=== PATIENT | female | born 1950 | race Caucasian/White ===

== ENCOUNTER 2017-08-27 13:49 | Inpatient (IN) | payer MEDICARE, OTHER ==
[2017-08-27] MEDS: IPRATRPIUM/ALBUTEROL 0.5/2.5MG 3 ML NEBU. NEB ×2 (14:14→17:58)
[2017-08-27] MEDS: IV NORMAL SALINE 1000ML BAG 1,000 ML IV ×2 (15:41→23:30)
[2017-08-27 15:50] LABS: ANION GAP 13 (6-14); BLOOD UREA NITROGEN 18 mg/dL (7-20); BUN/CREATININE RATIO 23 (6-20); CALCIUM 10.5 mg/dL (8.5-10.1); CARBON DIOXIDE 23 mmol/L (21-32); CHLORIDE 100 mmol/L (98-107); CREATININE 0.8 mg/dL (0.6-1.0); GFR 71.3; GLUCOSE 128 mg/dL (70-99); POTASSIUM 3.4 mmol/L (3.5-5.1); SODIUM 136 mmol/L (136-145)
[2017-08-27 15:57] LABS: ALBUMIN 2.7 g/dL (3.4-5.0); ALBUMIN/GLOBULIN RATIO 0.7 (1.0-1.7); ALK PHOS 119 U/L (46-116); ALT (SGPT) 11 U/L (14-59); AST (SGOT) 5 U/L (15-37); TOTAL BILIRUBIN 1.8 mg/dL (0.2-1.0); TOTAL PROTEIN 6.6 g/dL (6.4-8.2)
[2017-08-27 15:59] LABS: TROPONINI < 0.017 ng/mL (0.000-0.055)
[2017-08-27 16:02] LABS: NT-PRO BNP 1579 pg/mL (0-124)
[2017-08-27] MEDS: AZITHRMYCN 500MG IVPB FOR OMNI 250 ML IV (16:14)
[2017-08-27 16:32] LABS: BASO % 0 % (0-3); EOS % 0 % (0-3); HEMOGLOBIN 12.1 g/dL (12.0-15.5); LYMPH # 0.5 x10^3/uL (1.0-4.8); LYMPH % 2 % (24-48); MEAN CORPUSCULAR HEMOGLOBIN 29 pg (25-35); MEAN CORPUSCULAR HGB CONC 34 g/dL (31-37); MEAN CORPUSCULAR VOLUME 85 fL (79-100); MONO # 0.8 x10^3/uL (0.0-1.1); MONO % 4 % (0-9); NEUT # 21.3 x10^3uL (1.8-7.7); NEUT % 94 % (31-73); PLATELET COUNT 213 x10^3/uL (140-400); RED BLOOD COUNT 4.23 x10^6/uL (3.50-5.40); RED CELL DISTRIBUTION WIDTH 14.6 % (11.5-14.5); WHITE BLOOD COUNT 22.6 x10^3/uL (4.0-11.0)
[2017-08-27 16:33] LABS: ADD MAN DIFF? YES
[2017-08-27] MEDS ORDERED: PIP/TAZO PER PHARMACY MC (17:00)
[2017-08-27 17:09] LABS: % BANDS 12 % (0-9); % LYMPHS 4 % (24-48); % MONOS 3 % (0-10); % SEGS 81 % (35-66)
[2017-08-27 17:13] LABS: PLT ESTIMATE ADEQUATE (ADEQUATE)
[2017-08-27] MEDS: PIPERACILLIN/TAZOBACTAM 3.375 GM in IV NORMAL SALINE 50ML 50 ML IV (17:24)
[2017-08-27] MEDS: VANCOMYCIN 2 GM in IV 1/2 NORMAL SALINE 500 ML IV (18:03)
[2017-08-27] MEDS: VANCOMYCIN PER PHARMACY MC (20:00)
[2017-08-27 20:17] LABS: LACTIC ACID 1.6 mmol/L (0.4-2.0)
[2017-08-27] MEDS: ACETAMINOPHEN 325 MG TABLET. PO (21:16)
[2017-08-28 05:25] LABS: ADD MAN DIFF? NO
[2017-08-28 05:28] LABS: BASO # 0.1 x10^3/uL (0.0-0.2); BASO % 0 % (0-3); EOS # 0.1 x10^3/uL (0.0-0.7); EOS % 0 % (0-3); HEMATOCRIT 36.2 % (36.0-47.0); HEMOGLOBIN 12.2 g/dL (12.0-15.5); LYMPH # 0.5 x10^3/uL (1.0-4.8); LYMPH % 3 % (24-48); MEAN CORPUSCULAR HEMOGLOBIN 29 pg (25-35); MEAN CORPUSCULAR HGB CONC 34 g/dL (31-37); MEAN CORPUSCULAR VOLUME 85 fL (79-100); MONO # 0.5 x10^3/uL (0.0-1.1); MONO % 3 % (0-9); NEUT # 16.5 x10^3uL (1.8-7.7); NEUT % 94 % (31-73); PLATELET COUNT 225 x10^3/uL (140-400); RED BLOOD COUNT 4.25 x10^6/uL (3.50-5.40); RED CELL DISTRIBUTION WIDTH 14.8 % (11.5-14.5); WHITE BLOOD COUNT 17.6 x10^3/uL (4.0-11.0)
[2017-08-28 05:48] LABS: ANION GAP 11 (6-14); BLOOD UREA NITROGEN 11 mg/dL (7-20); CARBON DIOXIDE 25 mmol/L (21-32); CHLORIDE 102 mmol/L (98-107); CREATININE 0.8 mg/dL (0.6-1.0); GFR 71.3; GLUCOSE 104 mg/dL (70-99); POTASSIUM 3.1 mmol/L (3.5-5.1); SODIUM 138 mmol/L (136-145)
[2017-08-28 05:55] LABS: CALCIUM 10.2 mg/dL (8.5-10.1)
[2017-08-28] MEDS: PIPERACILLIN/TAZOBACTAM 3.375 GM in IV NORMAL SALINE 50ML 50 ML IV ×5 (06:33→23:47)
[2017-08-28] MEDS: PANTOPRAZOLE 40 MG TABLET.DR. PO (07:53)
[2017-08-28] MEDS: VANCOMYCIN 1.25 GM in IV NORMAL SALINE 250ML 250 ML IV ×2 (07:54→20:44)
[2017-08-28] MEDS: MYCOPHENOLATE ACID 180 MG TABLET.DR. PO ×2 (08:31→20:44)
[2017-08-28] MEDS: CELECOXIB 200 MG CAPSULE. PO ×2 (08:32→20:45)
[2017-08-28] MEDS: CETIRIZINE HCL 10 MG TABLET. PO (08:32)
[2017-08-28] MEDS: FUROSEMIDE 20 MG TABLET PO (08:32)
[2017-08-28] MEDS: FOLIC/VIT B COMP W-C (RENAL) TABLET. PO (08:32)
[2017-08-28] MEDS: CYCLOBENZAPRINE 10 MG TABLET. PO (08:32)
[2017-08-28] MEDS: CARVEDILOL 12.5 MG TABLET. PO ×2 (08:33→17:16)
[2017-08-28] MEDS: TACROLIMUS 0.5 MG CAPSULE PO ×2 (08:33→20:44)
[2017-08-28] MEDS: IPRATRPIUM/ALBUTEROL 0.5/2.5MG 3 ML NEBU. NEB ×2 (11:16→16:41)
[2017-08-28] MEDS: POTASSIUM CHLORIDE 20 MEQ TABLET.ER. PO (14:52)
[2017-08-28] MEDS: IV NORMAL SALINE 1000ML BAG 1,000 ML IV ×2 (14:55→23:47)
[2017-08-28 20:05] LABS: VANC TR 15.4 mcg/mL (10.0-20.0)
[2017-08-28] MEDS: VANCOMYCIN PER PHARMACY MC (20:35)
[2017-08-28] MEDS: cloNIDine HCL 0.2 MG TABLET PO (20:45)
[2017-08-29] MEDS: PIPERACILLIN/TAZOBACTAM 3.375 GM in IV NORMAL SALINE 50ML 50 ML IV ×4 (05:35→23:31)
[2017-08-29] MEDS: PANTOPRAZOLE 40 MG TABLET.DR. PO (07:21)
[2017-08-29] MEDS: IPRATRPIUM/ALBUTEROL 0.5/2.5MG 3 ML NEBU. NEB ×4 (07:27→20:08)
[2017-08-29 07:51] LABS: ADD MAN DIFF? NO
[2017-08-29 07:58] LABS: BASO # 0.1 x10^3/uL (0.0-0.2); BASO % 0 % (0-3); EOS # 0.1 x10^3/uL (0.0-0.7); EOS % 1 % (0-3); HEMATOCRIT 35.7 % (36.0-47.0); HEMOGLOBIN 11.7 g/dL (12.0-15.5); LYMPH # 0.4 x10^3/uL (1.0-4.8); LYMPH % 4 % (24-48); MEAN CORPUSCULAR HEMOGLOBIN 28 pg (25-35); MEAN CORPUSCULAR HGB CONC 33 g/dL (31-37); MEAN CORPUSCULAR VOLUME 86 fL (79-100); MONO # 0.6 x10^3/uL (0.0-1.1); MONO % 5 % (0-9); NEUT # 11.1 x10^3uL (1.8-7.7); NEUT % 90 % (31-73); PLATELET COUNT 222 x10^3/uL (140-400); RED BLOOD COUNT 4.14 x10^6/uL (3.50-5.40); RED CELL DISTRIBUTION WIDTH 15.1 % (11.5-14.5); WHITE BLOOD COUNT 12.3 x10^3/uL (4.0-11.0)
[2017-08-29] MEDS: VANCOMYCIN 1.25 GM in IV NORMAL SALINE 250ML 250 ML IV ×2 (08:09→20:27)
[2017-08-29] MEDS: CARVEDILOL 12.5 MG TABLET. PO ×2 (08:11→17:23)
[2017-08-29] MEDS: POTASSIUM CHLORIDE 20 MEQ TABLET.ER. PO (08:12)
[2017-08-29] MEDS: FUROSEMIDE 20 MG TABLET PO (08:12)
[2017-08-29] MEDS: MYCOPHENOLATE ACID 180 MG TABLET.DR. PO ×2 (08:12→20:27)
[2017-08-29] MEDS: CELECOXIB 200 MG CAPSULE. PO ×2 (08:12→20:27)
[2017-08-29] MEDS: TACROLIMUS 0.5 MG CAPSULE PO ×2 (08:12→20:28)
[2017-08-29] MEDS: CYCLOBENZAPRINE 10 MG TABLET. PO (08:13)
[2017-08-29] MEDS: CETIRIZINE HCL 10 MG TABLET. PO (08:13)
[2017-08-29] MEDS: FOLIC/VIT B COMP W-C (RENAL) TABLET. PO (08:13)
[2017-08-29 08:22] LABS: ALBUMIN 2.1 g/dL (3.4-5.0); ALBUMIN/GLOBULIN RATIO 0.6 (1.0-1.7); ALK PHOS 118 U/L (46-116); ALT (SGPT) 10 U/L (14-59); ANION GAP 14 (6-14); AST (SGOT) 11 U/L (15-37); BLOOD UREA NITROGEN 10 mg/dL (7-20); BUN/CREATININE RATIO 14 (6-20); CALCIUM 9.1 mg/dL (8.5-10.1); CARBON DIOXIDE 22 mmol/L (21-32); CHLORIDE 107 mmol/L (98-107); CREATININE 0.7 mg/dL (0.6-1.0); GFR 83.2; GLUCOSE 108 mg/dL (70-99); SODIUM 143 mmol/L (136-145); TOTAL BILIRUBIN 0.6 mg/dL (0.2-1.0); TOTAL PROTEIN 5.9 g/dL (6.4-8.2)
[2017-08-29] MEDS: IV NORMAL SALINE 1000ML BAG 1,000 ML IV (11:24)
[2017-08-29] MEDS: VANCOMYCIN PER PHARMACY MC (14:22)
[2017-08-29] MEDS: cloNIDine HCL 0.2 MG TABLET PO (20:28)
[2017-08-29] MEDS: guaiFENesin DM 200MG/20MG 10 ML SYRUP PO (20:31)
[2017-08-30] MEDS: IV NORMAL SALINE 1000ML BAG 1,000 ML IV (02:58)
[2017-08-30] MEDS: PIPERACILLIN/TAZOBACTAM 3.375 GM in IV NORMAL SALINE 50ML 50 ML IV (05:37)
[2017-08-30] MEDS: IPRATRPIUM/ALBUTEROL 0.5/2.5MG 3 ML NEBU. NEB ×4 (07:06→19:50)
[2017-08-30] MEDS: PANTOPRAZOLE 40 MG TABLET.DR. PO (09:11)
[2017-08-30 09:12] LABS: ADD MAN DIFF? NO
[2017-08-30] MEDS: CYCLOBENZAPRINE 10 MG TABLET. PO (09:12)
[2017-08-30] MEDS: CELECOXIB 200 MG CAPSULE. PO (09:12)
[2017-08-30] MEDS: POTASSIUM CHLORIDE 20 MEQ TABLET.ER. PO (09:12)
[2017-08-30] MEDS: CARVEDILOL 12.5 MG TABLET. PO ×2 (09:12→17:50)
[2017-08-30] MEDS: MYCOPHENOLATE ACID 180 MG TABLET.DR. PO ×2 (09:13→21:58)
[2017-08-30] MEDS: FUROSEMIDE 20 MG TABLET PO (09:13)
[2017-08-30] MEDS: TACROLIMUS 0.5 MG CAPSULE PO ×2 (09:14→21:58)
[2017-08-30] MEDS: CETIRIZINE HCL 10 MG TABLET. PO (09:15)
[2017-08-30] MEDS: FOLIC/VIT B COMP W-C (RENAL) TABLET. PO (09:15)
[2017-08-30 09:17] LABS: BASO % 0 % (0-3); EOS # 0.2 x10^3/uL (0.0-0.7); EOS % 2 % (0-3); HEMATOCRIT 34.2 % (36.0-47.0); HEMOGLOBIN 11.3 g/dL (12.0-15.5); LYMPH # 0.4 x10^3/uL (1.0-4.8); LYMPH % 4 % (24-48); MEAN CORPUSCULAR HEMOGLOBIN 28 pg (25-35); MEAN CORPUSCULAR HGB CONC 33 g/dL (31-37); MEAN CORPUSCULAR VOLUME 85 fL (79-100); MONO # 0.4 x10^3/uL (0.0-1.1); MONO % 5 % (0-9); NEUT # 7.6 x10^3uL (1.8-7.7); NEUT % 88 % (31-73); PLATELET COUNT 252 x10^3/uL (140-400); RED CELL DISTRIBUTION WIDTH 14.7 % (11.5-14.5); WHITE BLOOD COUNT 8.6 x10^3/uL (4.0-11.0)
[2017-08-30 09:33] LABS: ALBUMIN 2.1 g/dL (3.4-5.0); ALBUMIN/GLOBULIN RATIO 0.4 (1.0-1.7); ALK PHOS 98 U/L (46-116); ALT (SGPT) 9 U/L (14-59); ANION GAP 10 (6-14); AST (SGOT) 8 U/L (15-37); BLOOD UREA NITROGEN 7 mg/dL (7-20); BUN/CREATININE RATIO 8 (6-20); CALCIUM 9.5 mg/dL (8.5-10.1); CARBON DIOXIDE 27 mmol/L (21-32); CHLORIDE 105 mmol/L (98-107); CREATININE 0.9 mg/dL (0.6-1.0); GFR 62.3; GLUCOSE 143 mg/dL (70-99); POTASSIUM 3.6 mmol/L (3.5-5.1); SODIUM 142 mmol/L (136-145); TOTAL BILIRUBIN 0.6 mg/dL (0.2-1.0)
[2017-08-30] MEDS: AMOXICILLIN/K CLAV 875/125MG TABLET. PO ×2 (11:06→21:57)
[2017-08-30] MEDS: cloNIDine HCL 0.2 MG TABLET PO (21:57)
[2017-08-30] MEDS: CELECOXIB 100 MG CAPSULE. PO (21:58)
[2017-08-30] MEDS: guaiFENesin DM 200MG/20MG 10 ML SYRUP PO (22:05)
[2017-08-30 22:14] LABS: LEGIONELLA AG UR Negative (Negative)
[2017-08-31 05:20] LABS: ADD MAN DIFF? NO
[2017-08-31 05:34] LABS: BASO % 0 % (0-3); EOS # 0.1 x10^3/uL (0.0-0.7); EOS % 2 % (0-3); HEMATOCRIT 33.9 % (36.0-47.0); HEMOGLOBIN 11.3 g/dL (12.0-15.5); LYMPH # 0.5 x10^3/uL (1.0-4.8); LYMPH % 6 % (24-48); MEAN CORPUSCULAR HEMOGLOBIN 28 pg (25-35); MEAN CORPUSCULAR HGB CONC 33 g/dL (31-37); MEAN CORPUSCULAR VOLUME 85 fL (79-100); MONO # 0.6 x10^3/uL (0.0-1.1); MONO % 8 % (0-9); NEUT # 7.1 x10^3uL (1.8-7.7); NEUT % 85 % (31-73); PLATELET COUNT 268 x10^3/uL (140-400); RED CELL DISTRIBUTION WIDTH 14.5 % (11.5-14.5); WHITE BLOOD COUNT 8.4 x10^3/uL (4.0-11.0)
[2017-08-31 05:44] LABS: ANION GAP 10 (6-14); BLOOD UREA NITROGEN 6 mg/dL (7-20); CALCIUM 9.7 mg/dL (8.5-10.1); CARBON DIOXIDE 29 mmol/L (21-32); CHLORIDE 103 mmol/L (98-107); CREATININE 0.7 mg/dL (0.6-1.0); GFR 83.2; GLUCOSE 119 mg/dL (70-99); POTASSIUM 3.4 mmol/L (3.5-5.1); SODIUM 142 mmol/L (136-145)
[2017-08-31] MEDS: IPRATRPIUM/ALBUTEROL 0.5/2.5MG 3 ML NEBU. NEB ×2 (08:06→11:34)
[2017-08-31] MEDS: POTASSIUM CHLORIDE 20 MEQ TABLET.ER. PO ×2 (08:15→08:50)
[2017-08-31] MEDS: PANTOPRAZOLE 40 MG TABLET.DR. PO (08:49)
[2017-08-31] MEDS: CARVEDILOL 12.5 MG TABLET. PO (08:49)
[2017-08-31] MEDS: AMOXICILLIN/K CLAV 875/125MG TABLET. PO (08:50)
[2017-08-31] MEDS: CYCLOBENZAPRINE 10 MG TABLET. PO (08:50)
[2017-08-31] MEDS: FUROSEMIDE 20 MG TABLET PO (08:51)
[2017-08-31] MEDS: CELECOXIB 100 MG CAPSULE. PO (08:51)
[2017-08-31] MEDS: MYCOPHENOLATE ACID 180 MG TABLET.DR. PO (08:53)
[2017-08-31] MEDS: CETIRIZINE HCL 10 MG TABLET. PO (08:53)
[2017-08-31] MEDS: FOLIC/VIT B COMP W-C (RENAL) TABLET. PO (08:53)
[2017-08-31] MEDS: TACROLIMUS 0.5 MG CAPSULE PO (08:58)
== END 2017-08-31 12:00 | disposition home or self-care (01) | DRG 871 ==
LOC: ER 13:49 → 1 WEST ICU 17:44 → 5 NORTH 19:17
DX: A41.9 Sepsis, unspecified organism (principal); J15.6 Pneumonia due to other Gram-negative bacteria; J96.01 Acute respiratory failure with hypoxia; Z94.0 Kidney transplant status; Z94.4 Liver transplant status; K21.9 Gastro-esophageal reflux disease without esophagitis; I10 Essential (primary) hypertension; Z90.49 Acquired absence of other specified parts of digestive tract; Z87.891 Personal history of nicotine dependence; Z79.899 Other long term (current) drug therapy; Z88.5 Allergy status to narcotic agent; Z99.2 Dependence on renal dialysis
CPT/HCPCS: 36415; 71046; 80048; 80053; 80202; 83605; 83880; 84484; 85007; 85025; 87070; 87205; 87449; 93005; 94618; 94640; 94760; 96365; 96367; 96375; 97110-GP; 97162-GP; 97165-GO; 99285; 99285-25; G0238; J0456; J0690; J2543; J3370; J7030; J7050; J7507; J7620

== ENCOUNTER → 2018-05-22 | Outpatient (CLI) | payer OTHER ==
[2017-08-31 11:00] VITALS: BP 155/62
[~2018-05-22] MED LIST: ALBU2.5V8 INH; AMOX1TAB11 PO; CARV12.511 PO; CELE200C PO; CETI10TA16 PO; CLON0.2T PO; CYCL10TA2 PO; FOLI0.8T3 PO; FURO-69 PO; GUAI-40 PO; GUAI5SYR PO; MYCO360T PO; PANT20TA2 PO; PRED-220 PO; PRED1TAB3 PO; TACR1CAP4 PO; [UNRECOGNIZED DRUG - OTHER]
--- NOTE | 2018-05-22 15:06 | KCIC ---
EXAM: Right knee, 3 views. HISTORY: Pain. COMPARISON: None. FINDINGS: 3 views of the right knee are obtained. There is lateral compartment subchondral sclerosis and medial and lateral compartment spurring. There is no fracture, dislocation or subluxation. There is a small joint effusion. IMPRESSION: 1. Mild lateral greater than medial compartment osteoarthritis of the right knee. 2. Small right knee effusion. Electronically signed by: Selam Mcleod MD (05/22/2018 3:03 PM) [facility]
== END | disposition home or self-care (01) ==
LOC: KCIC 14:41
PROVIDERS: ATTEND Family Medicine
DX: M17.11 Unilateral primary osteoarthritis, right knee (principal); M25.461 Effusion, right knee
CPT/HCPCS: 73562

== ENCOUNTER → 2019-10-02 | Outpatient (CLI) | payer OTHER ==
[2017-08-31 11:00] VITALS: BP 155/62
[~2019-10-02] MED LIST changes: -TACR1CAP4 PO; +TACR1CAP5 PO
--- NOTE | 2019-10-02 10:40 | KCIC ---
EXAM: 1. RIGHT HAND 3 VIEWS. 2. RIGHT WRIST 3 VIEWS. HISTORY: Palpable focus and pain right hand/wrist. COMPARISON: None. FINDINGS: A skin marker is placed along a soft tissue mass along the dorsum of the wrist measuring 3.8 x 1.2 cm. There is no underlying osseous abnormality. No fractures are identified in the wrist. First carpometacarpal and triscaphe osteoarthritis is moderate to severe. Alignment is maintained. No fractures are identified throughout the hand. Osteoarthritis is moderate at the first through third metacarpophalangeal joints. It is moderate to severe at the second and third distal interphalangeal joints and mild throughout the remainder of the interphalangeal joints. Mild atherosclerotic calcifications are noted. IMPRESSION: 1. 3.8 x 1.2 cm soft tissue mass along the dorsum of the wrist. This may represent a large ganglion. Sonography could further evaluate if the diagnosis is unclear. 2. Moderate to severe osteoarthritis as above. Electronically signed by: Preston Ayala MD (10/02/2019 10:36 AM) [id number]
== END | disposition home or self-care (01) ==
LOC: KCIC 09:20
PROVIDERS: ATTEND Family Medicine
DX: M19.041 Primary osteoarthritis, right hand (principal); M67.431 Ganglion, right wrist; I70.0 Atherosclerosis of aorta
CPT/HCPCS: 73110; 73130

== ENCOUNTER 2020-05-03 19:07 | Emergency (ER) | payer OTHER ==
[~2020-05-03] VITALS: Ht 160 cm; Wt 61.4 kg
[2020-05-03] MEDS ORDERED: IV NORMAL SALINE 1000ML BAG 1,000 ML IV ONE (19:45)
--- NOTE | 2020-05-03 19:55 | PHYS DOC ---
Past Medical History Past Medical History: GERD, Hypertension, Liver Disease, Renal Disease, Other Additional Past Medical Histor: LIVER AND KIDNEY TRANSPLANT Past Surgical History: Cholecystectomy, Other Additional Past Surgical Histo: dialysis shunt, LIVER AND KIDNEY TRANSPLANT Smoking Status: Former Smoker Alcohol Use: Sober Drug Use: None General Adult EDM: Chief Complaint: NAUSEA/VOMITING/DIARRHA HPI: HPI: 69 yo F PMH HTN, HLD and h/o liver and renal transplant 7 years ago (2/2 sepsis w/organ failure, on tacrolimus, no prednisone since 01/2020 because "fighting w/insurance"), presents to the ED with complaints of sudden onset nausea, nonb loody nonbilious vomiting that started this morning with associated loose stools, dry cough and headache. Lives with son who is well-appearing, asymptomatic. Influenza vaccine up-to-date. No recent travel. No history of Covid. Was not aware she had a low-grade fever. Denies any recent travel, new medications, recent antibiotics, hospitalizations (past 3 months) or poorly prep ared foods. PSH - cholecystectomy. Accepts covid/flu testing. Review of Systems: Review of Systems: Constitutional: Denies malaise or myalgias Eyes: Denies change in visual acuity. [] HENT: Denies nasal congestion or sore throat. [] Respiratory: Denies hemoptysis or shortness of breath. [] Cardiovascular: Denies chest pain or edema. [] GI: Denies focal abdominal pain, melena, hematochezia, hematemesis or constipation : Denies dysuria, hematuria Musculoskeletal: Denies back pain or joint pain. [] Integument: Denies rash or diaphoresis Neurologic: Denies nuchal rigidity, focal weakness or sensory changes. [] Endocrine: Denies polyuria or polydipsia. [] Lymphatic: Denies swollen glands. [] Psychiatric: Denies depression or anxiety. [] Heart Score: Risk Factors: Risk Factors: DM, Current or recent (<one month) smoker, HTN, HLP, family history of CAD, obesity. Risk Scores: Score 0 - 3: 2.5% MACE over next 6 weeks - Discharge Home Score 4 - 6: 20.3% MACE over next 6 weeks - Admit for Clinical Observation Score 7 - 10: 72.7% MACE over next 6 weeks - Early Invasive Strategies Current Medications: Current Medications Medications (Trade) Dose Ordered Sig/Tri Start Time Stop Time Status Last Admin Dose Admin Sodium Chloride 1,000 ml @ 1,000 mls/hr 1X ONCE 05/03/20 19:45 05/03/20 20:44 Allergies: Allergies: Allergies Coded Allergies Type Severity Reaction Last Updated Verified codeine Allergy Intermediate 08/28/17 Yes Physical Exam: PE: Constitutional: Well developed, non-toxic appearance, 100.1 HENT: Normocephalic, atraumatic, very dry mucous membranes, no pharyngeal erythema or exudates Eyes: EOMI, conjunctiva normal, no discharge. Neck: Normal range of motion, supple, Cardiovascular: S1/2 present, regular rhythm Lungs & Thorax: Speaking in full sentences, bilateral equal chest rise, no tachypnea or increased work of breathing Abdomen: soft, no focal tenderness, obese abdomen with no guarding or peritonitis, dry heaving in ED Skin: Warm, dry, no erythema, no rash. [] Back: No midline tenderness, no CVA tenderness. [] Extremities: No tenderness, no cyanosis, no edema Neurologic: Alert and oriented X 3, normal motor function, normal sensory function, no focal deficits noted. [] Psychologic: Affect normal, judgement normal, mood normal. [] EKG: EKG: Sinus rhythm at 90 bpm, no axis deviation, normal intervals, no T wave inversions, no ST elevations or ST depressions Radiology/Procedures: Radiology/Procedures: IMAGING REPORT Signed PATIENT: ANDREA CHAVEZ AACCOUNT: [id number] : 1950 LOCATION: ER AGE: 69 SEX: F EXAM STATUS: PRE ER ORD. PHYSICIAN: STEFF GRACIA DO REASON: nvd PROCEDURE: PORTABLE CHEST 1V Exam: Chest one view INDICATION: Nausea TECHNIQUE: Frontal view of the chest Comparisons: 08/30/2017 FINDINGS: The cardiomediastinal silhouette and pulmonary vessels are within normal limits. The lung and pleural spaces are clear. IMPRESSION: No acute cardiopulmonary process. Electronically signed by: Andrews Bowers MD (05/03/2020 7:52 PM) [facility] DICTATED and SIGNED BY: ANDREWS BOWERS MD DATE: 05/03/200783XXD1 0 IMAGING REPORT Signed PATIENT: ANDREA CHAVEZ AACCOUNT: [id number] : 1950 LOCATION: ER AGE: 69 SEX: F EXAM STATUS: REG ER ORD. PHYSICIAN: STEFF GRACIA DO REASON: n/v/d PROCEDURE: CT ABD PELV W/ IV CONTRST ONLY Exam: CT of abdomen and pelvis with contrast INDICATION: Nausea, vomiting and diarrhea TECHNIQUE: Sequential axial images through the abdomen and pelvis obtained following the administration of 75 mL of Isovue-370 IV contrast. Sagittal and coronal reformatted images were reconstructed from the axial data and reviewed. Comparisons: None FINDINGS: Heart size is normal. No pericardial effusion. Visualized lung bases are clear. Pleural effusion. Liver, spleen, pancreas and adrenals are unremarkable. Gallbladder is surgically absent. Negative kidneys are atrophic bilaterally. No renal or ureteral calculi. There is a right lower quadrant transplant kidney. No hydronephrosis. Bladder is partially distended and appears thin-walled. Uterus is not enlarged. No abnormal adnexal mass. Large and small bowel are unremarkable. There is a right lower quadrant ventral hernia containing loops of large and small bowel. No obstruction. No free intra- abdominal air or fluid. Abdominal aorta has a normal course and caliber. Abdominal vasculature is patent. No enlarged intra-abdominal lymph nodes are identified. No suspicious osseous lesions or acute fractures. IMPRESSION: 1. Right lower quadrant ventral hernia containing loops of large and small bowel. No obstruction. 2. No acute process identified in the abdomen or pelvis. 3. Right lower quadrant transplant kidney. No perinephric inflammation or hydronephrosis. Exposure: One or more of the following in the visualized dose reduction techniques were utilized for this examination: 1. Automated exposure control 2. Adjustment of the MA and/or KV according to patient size 3. Use of iterative of reconstructive technique Electronically signed by: Andrews Bowers MD (05/03/2020 11:03 PM) [facility] DICTATED and SIGNED BY: ANDREWS BOWERS MD DATE: 05/03/20 [id number] 0 Course & Med Decision Making: Course & Med Decision Making Pertinent Labs and Imaging studies reviewed. (See chart for details) COVID-19 CRITERIA: The patient was evaluated during the global COVID-19 pandemic, and that diagnosis was suspected/considered upon their initial presentation. Their evaluation, treatment and testing was consistent with current guidelines for patients who present with complaints or symptoms that may be related to COVID-19. Concern for nausea and vomiting, cough and headache which could represent a viral process, Covid test pending. Influenza negative. CT imaging consistent with nonobstructive ventral hernia. Oral temperature of 100.1 with no leukocytosis or bandemia. Normal lipase. Potassium 3.4. Urinalysis with trace leukocyte esterase, 1-4 wbcs. Given age/likely asymptomatic presentation will treat with Macrobid and prescribe Zofran ODT. Will discharge home with strict ED return precautions were given for worsening fever, dehydration, confusion flulike symptoms, flank pain, strokelike symptoms, chest pain or increased work of breathing. Encouraged urgent outpatient follow-up with PMD and GI prn. Life- threatening processes were considered but are low suspicion at this time, given history, physical exam and ED workup. Pt was educated on all prescription medications and adverse effects. All patient's questions were answered and pt was stable at time of discharge. Life/limb-threatening differential includes but is not limited to, acute coronary syndrome/myocardial infarction, Boerhaave's, DKA, intracranial hemorrhage, ischemic bowel, meningitis, sepsis, surgical abdomen (AAA), toxidrome (drug over/overdose/carbon monoxide, etc), ovarian/testicular torsion, trauma, or infection/sepsis. I spoken with the patient and her caregivers. I explained the patient's condition, diagnoses and treatment plan based on the information available to me at this time. I have answered the patient and her caregiver's questions and addressed any concerns. The patient and her caregivers have a good understanding of patient's diagnosis, condition and treatment plan as can be expected at this point. Vital signs have been stable. Patient's condition is stable and appropriate for discharge from the emergency department. Patient will pursue further outpatient evaluation with primary care physician or other designated or consulting physician as outlined in the discharge instructions. The patient and/or caregivers are agreeable to this plan of care and follow-up instructions have been explained in detail. The patient and/or caregivers have received these instructions in written form and have expressed an understanding of the discharge instructions. The patient and/or caregivers are aware that any significant change of condition or worsening of symptoms should prompt immediate return to this or the closest emergency department or call to 911. Munirbernadette Disclaimer: Dragon Disclaimer: This electronic medical record was generated, in whole or in part, using a voice recognition dictation system. Departure Departure Impression: Primary Impression: Nausea and vomiting Additional Impressions: Encounter for laboratory testing for COVID-19 virus UTI (urinary tract infection) Disposition: 01 DC HOME SELF CARE/HOMELESS Condition: STABLE Referrals: ДМИТРИЙ MONTE MD (PCP) Follow-up within the next week for reevaluation. Patient Instructions: Nausea and Vomiting, Urinary Tract Infection Additional Instructions: FOLLOW UP WITH GASTROENTEROLOGY: Gastroenterology [facility] Address: [address] [place] [address] Return to ED immediately if your oxygen level drops below 90% (purchase a pulse oximetry at a medical supply store), difficulties breathing including rapid breathing or increased work of breathing (skin sucking under ribs), chest pain or stroke-like symptoms (facial droop, speech changes, arm/leg weakness). You have been tested for COVID-19. It is an infection caused by a new type of coronavirus. COVID-19 will cause cold-like or mild flu symptoms in most. It can cause more severe symptoms like problems breathing in some. There is no treatment for COVID-19. The body will clear the infection over time. Self-care will help to ease discomfort. Steps to Take: Self-Care Rest as needed. Healthy habits may help you feel better. Steps include: Choose healthy foods including fruits and vegetables. Drink water throughout the day. Get plenty of sleep each night. If you smoke, try to quit. It may ease breathing. Avoid alcohol. Keep Others Healthy The virus can spread to others. Droplets are released every time you sneeze or cough. The droplets can get into the mouth, nose, or eyes of people near you and lead to infection. To lower the chances of spreading COVID-19 to others: Stay at home until your doctor has said it is safe to leave. If you tested positive this will mean staying isolated until both of the following are true: At least 7 days have passed since the start of illness. You are free of fever for at least 72 hours without the use of medicine. During this time: - Avoid public areas, events, or transportation. Do not return to work or school until your doctor has said it is safe to do so. - Call ahead if you need to go to a medical center. Let them know you may have COVID-19. It will help them guide you where to go. They may also ask you to wear a facemask when you come to the office. - If you call for emergency medical services, let them know you may have COVID- 19. While at home: - Try to avoid close contact with others. Stay about 6 feet away. - If possible, spend most of your time in a separate room from others. - Use a face mask if you will be in close contact with others such as sharing a room or vehicle. - Have someone wipe down common surfaces in the home. Use household hide dropper every day on areas like doorknobs, counters, or sinks. - Cough or sneeze into a tissue. Throw the tissue away right after use. If a tissue is not available, cough or sneeze into your elbow. - Wash your hands often. Wash them after sneezing or coughing. Use soap and water and wash for at least 20 seconds. Alcohol based hand creel cleaner can be used if soap and wate r is not available. - Do not prepare food for others. Avoid sharing personal items like forks, spoons, or toothbrushes. - Avoid close contact with pets while you are sick. There is no evidence of the virus passing to pets. This is a safety step until more is known about this virus. Isolation can be frustrating. Social interaction can help. Keep in touch with friends and family through phone and tech options. You can still interact with others in your home, just keep a safe distance of about 6 feet. Follow-up: Your doctors office will check in with you to see if there are any changes in your health. You may be asked to keep track of symptoms to share with them. They will also let you know when you are clear to be in public again. Problems to Look Out For: Contact your doctor if your recovery is not going as you expect. Get emergency care if you have problems such as: - Trouble breathing - Nonstop chest pain or pressure - Changes in awareness, confusion, or problems waking - Lips or face have bluish color - Worsening of symptoms If you think you have an emergency, call for emergency medical services right away. As taken from [facility] Health Scripts Ondansetron (ONDANSETRON ODT) 4 Mg Tab.rapdis 1 TAB PO PRN Q6-8HRS, #20 TAB Prov: STEFF GRACIA DO 05/04/20 Nitrofurantoin Monohyd/M-Cryst (MACROBID 100 MG CAPSULE) 100 Mg Capsule 1 CAP PO BID for 7 Days, #14 CAP 0 Refills Prov: STEFF GRACIA DO 05/04/20 STEFF GRACIA DO May 03, 2020 19:55
[2020-05-03 19:59] LABS: BASO # 0.1 x10^3/uL (0.0-0.2); BASO % 1 % (0-3); EOS % 1 % (0-3); HEMATOCRIT 40.9 % (36.0-47.0); HEMOGLOBIN 13.6 g/dL (12.0-15.5); LYMPH # 0.6 x10^3/uL (1.0-4.8); LYMPH % 6 % (24-48); MEAN CORPUSCULAR HEMOGLOBIN 28 pg (25-35); MEAN CORPUSCULAR HGB CONC 33 g/dL (31-37); MEAN CORPUSCULAR VOLUME 83 fL (79-100); MONO # 0.8 x10^3/uL (0.0-1.1); MONO % 8 % (0-9); NEUT % 86 % (31-73); PLATELET COUNT 245 x10^3/uL (140-400); RED BLOOD COUNT 4.93 x10^6/uL (3.50-5.40); RED CELL DISTRIBUTION WIDTH 15.1 % (11.5-14.5); WHITE BLOOD COUNT 10.5 x10^3/uL (4.0-11.0)
[2020-05-03 20:13] LABS: CALCIUM 10.6 mg/dL (8.5-10.1); CREATININE 0.8 mg/dL (0.6-1.0); GFR 70.9; POTASSIUM 3.4 mmol/L (3.5-5.1)
[2020-05-03 20:28] LABS: ALBUMIN 3.8 g/dL (3.4-5.0); DIRECT BILIRUBIN 0.3 mg/dL (0.0-0.2); TOTAL BILIRUBIN 1.4 mg/dL (0.2-1.0); TOTAL PROTEIN 8.1 g/dL (6.4-8.2)
[2020-05-03 20:31] LABS: INFLUENZA A PATIENT NEGATIVE (NEGATIVE); INFLUENZA B PATIENT NEGATIVE (NEGATIVE)
[2020-05-03] MEDS ORDERED: ONDANSETRON PF 4 MG/2 ML VIAL. IM ONE (20:45)
[2020-05-03 20:50] LABS: % BANDS 1 % (0-9); % EOS 1 % (0-5); % LYMPHS 8 % (24-48); % MONOS 5 % (0-10); % SEGS 85 % (35-66); PLT ESTIMATE ADEQUATE (ADEQUATE)
[2020-05-03] MEDS ORDERED: IOHEXOL 300 MG/ML 100ML VIAL. IV ONE (21:00)
[2020-05-03] MEDS ORDERED: CONTRAST GIVEN. MC PRN (21:15)
[2020-05-03 21:18] LABS: BILIRUBIN,URINE NEGATIVE (NEG); CLARITY,URINE CLEAR; COLOR,URINE YELLOW; NITRITE,URINE NEGATIVE (NEG); PH,URINE 7.5 (<5.0-8.0); PROTEIN,URINE NEGATIVE (NEG-TRACE); UROBILINOGEN,URINE 0.2 mg/dL (0.2 mg/dL)
[2020-05-03 21:25] LABS: BACTERIA,URINE FEW /HPF (0-FEW); RBC,URINE 0 /HPF (0-2)
--- NOTE | 2020-05-03 23:05 | RAD ---
Exam: CT of abdomen and pelvis with contrast INDICATION: Nausea, vomiting and diarrhea TECHNIQUE: Sequential axial images through the abdomen and pelvis obtained following the administrati on of 75 mL of Isovue-370 IV contrast. Sagittal and coronal reformatted images were reconstructed fro m the axial data and reviewed. Comparisons: None FINDINGS: Heart size is normal. No pericardial effusion. Visualized lung bases are clear. Pleural effusion. Liver, spleen, pancreas and adrenals are unremarkable. Gallbladder is surgically absent. Negative kidneys are atrophic bilaterally. No renal or ureteral calculi. There is a right lower quadr ant transplant kidney. No hydronephrosis. Bladder is partially distended and appears thin-walled. Uterus is not enlarged. No abnormal adnexal m ass. Large and small bowel are unremarkable. There is a right lower quadrant ventral hernia containing loo ps of large and small bowel. No obstruction. No free intra-abdominal air or fluid. Abdominal aorta has a normal course and caliber. Abdominal vasculature is patent. No enlarged intra-abdominal lymph nodes are identified. No suspicious osseous lesions or acute fractures. IMPRESSION: 1. Right lower quadrant ventral hernia containing loops of large and small bowel. No obstruction. 2. No acute process identified in the abdomen or pelvis. 3. Right lower quadrant transplant kidney. No perinephric inflammation or hydronephrosis. Exposure: One or more of the following in the visualized dose reduction techniques were utilized for this examination: 1. Automated exposure control 2. Adjustment of the MA and/or KV according to patient size 3. Use of iterative of reconstructive technique Electronically signed by: Andrews Aguilar MD (05/03/2020 11:03 PM) [facility]
[2020-05-03] MEDS ORDERED: diphenhydrAMINE 50 MG/ML VIAL IVP ONE (23:15)
[2020-05-03] MEDS ORDERED: PROCHLORPERAZINE 10 MG/2 ML VIAL. IV ONE (23:15)
[2020-05-03] MEDS ORDERED: DEXAMETHASONE SOD PHOS 20 MG/5 ML VIAL. IV ONE (23:15)
[2020-05-04 01:41] VITALS: BP 175/81
[2020-05-04] MEDS ORDERED: ONDA4TAB12 PO (01:48)
[2020-05-04] MEDS ORDERED: NITR100C62 PO (01:48)
--- NOTE | 2020-05-04 11:50 | EKG ---
[facility] [address] [place] [address] Test Date: 2020-05-03 Test Time: 19:30:20 Pat Name: ANDREA CHAVEZ Department: Room: Gender: F Unit Aide: : 1950 Requested By: STEFF GRACIA Order Number: [id number] Reading MD: Canelo Ugalde Measurements Intervals [place] Rate: 90 P: 43 MI: 126 QRS: 27 QRSD: 70 T: 34 QT: 320 QTc: 395 Interpretive Statements SINUS RHYTHM Electronically Signed On 05-05-2020 9:28:51 [employer] by Canelo Ugalde
--- NOTE | 2020-05-05 17:18 | NUR ---
IP: Attempted to contact pt concerning COVID results. Number on file has bee disconnected. Attempted to call son's number. No answer.
--- NOTE | 2020-05-06 15:03 | NUR ---
IP: Informed pt of negative COVID results. Pt verbalized understanding.
== END 2020-05-04 02:25 | disposition home or self-care (01) ==
LOC: ER 19:07
DX: N39.0 Urinary tract infection, site not specified (principal); Z20.822 Contact with and (suspected) exposure to COVID-19; R11.2 Nausea with vomiting, unspecified; R19.7 Diarrhea, unspecified; R05 Cough; K21.9 Gastro-esophageal reflux disease without esophagitis; I10 Essential (primary) hypertension; K76.1 Chronic passive congestion of liver; Z87.891 Personal history of nicotine dependence; Z98.890 Other specified postprocedural states; Z90.49 Acquired absence of other specified parts of digestive tract; Z88.5 Allergy status to narcotic agent
CPT/HCPCS: 36415; 71045; 74177; 80048; 80076; 81001; 82550; 83605; 83690; 83735; 84484; 85007; 85025; 87040; 87086; 87804; 93005; 96361; 96372; 96374; 96375; 99285; C9803; J0780; J1100; J1200; J2405; J7030; Q9967; U0003

== ENCOUNTER 2021-01-02 10:20 | Emergency (ER) | payer OTHER ==
[~2021-01-02] VITALS: Ht 160 cm; Wt 150.0 kg
[~2021-01-02 10:20] MED LIST changes: +NITR100C62 PO; +ONDA4TAB12 PO
[2021-01-02 10:52] LABS: BILIRUBIN,URINE NEGATIVE (NEG); CLARITY,URINE CLEAR; COLOR,URINE YELLOW; NITRITE,URINE POSITIVE (NEG); PH,URINE 6.5 (<5.0-8.0); PROTEIN,URINE 100 mg/dL (NEG-TRACE); UROBILINOGEN,URINE 0.2 mg/dL (0.2 mg/dL)
[2021-01-02 10:58] LABS: AMPHETAMINE/METHAMPHETAMINE NEG (NEG); BARBITURATES NEG (NEG); BENZODIAZEPINES NEG (NEG); CANNABINOIDS NEG (NEG); COCAINE NEG (NEG); METHADONE NEG (NEG); OPIATES NEG (NEG); PHENCYCLIDINE NEG (NEG)
--- NOTE | 2021-01-02 10:59 | PHYS DOC ---
Past Medical History Past Medical History: GERD, Hypertension, Liver Disease, Renal Disease, Other Additional Past Medical Histor: LIVER AND KIDNEY TRANSPLANT Past Surgical History: Cholecystectomy, Other Additional Past Surgical Histo: dialysis shunt, LIVER AND KIDNEY TRANSPLANT Smoking Status: Never Smoker Alcohol Use: None Drug Use: None General Adult EDM: Chief Complaint: SHORTNESS OF BREATH HPI: HPI: Patient is a 70 year old female with history of hypertension, liver and kidney transplant who presents to the ED today complaining of a cough with shortness of breath after being exposed to COVID-19 2 days ago. Patient states she got expos ed by a neighbor who tested positive. Patient denies any fever. She states she coughed so hard that she vomited. Denies any chest pain. Patient is unvaccinated against Covid. Review of Systems: Review of Systems: Constitutional: Denies fever or chills. [] Eyes: Denies change in visual acuity. [] HENT: Denies nasal congestion or sore throat. [] Respiratory: Reports cough and shortness of breath. [] Cardiovascular: Denies chest pain or edema. [] GI: Denies abdominal pain, nausea, vomiting, bloody stools or diarrhea. [] : Denies dysuria. [] Musculoskeletal: Denies back pain or joint pain. [] Integument: Denies rash. [] Neurologic: Denies headache, focal weakness or sensory changes. [] Psychiatric: Denies depression or anxiety. [] Heart Score: C/O Chest Pain: N/A Risk Factors: Risk Factors: DM, Current or recent (<one month) smoker, HTN, HLP, family history of CAD, obesity. Risk Scores: Score 0 - 3: 2.5% MACE over next 6 weeks - Discharge Home Score 4 - 6: 20.3% MACE over next 6 weeks - Admit for Clinical Observation Score 7 - 10: 72.7% MACE over next 6 weeks - Early Invasive Strategies Allergies: Allergies: Allergies Coded Allergies Type Severity Reaction Last Updated Verified codeine Allergy Intermediate 08/28/17 Yes Physical Exam: PE: Constitutional: Well developed, well nourished, no acute distress, non-toxic appearance. [] HENT: Normocephalic, atraumatic, bilateral external ears normal, oropharynx moist, no oral exudates, nose normal. [] Eyes: PERRLA, EOMI, conjunctiva normal, no discharge. [] Neck: Normal range of motion, no tenderness, supple, no stridor. [] Cardiovascular:Heart rate regular rhythm, no murmur [] Lungs & Thorax: Bilateral breath sounds clear to auscultation [] Abdomen: Old healed surgical incisions noted on the abdomen. Bowel sounds normal, soft, no tenderness, no masses, no pulsatile masses. [] Skin: Warm, dry, no erythema, no rash. [] Back: No tenderness, no CVA tenderness. [] Extremities: No tenderness, no cyanosis, no clubbing, ROM intact, no edema. [] Neurologic: Alert and oriented X 3, normal motor function, normal sensory function, no focal deficits noted. [] Psychologic: Affect normal, judgement normal, mood normal. [] EKG: EK interpreted by Dr. Floyd sinus tachycardia heart rate 107 no STEMI [] Radiology/Procedures: Radiology/Procedures: []PROCEDURE: PORTABLE CHEST 1V EXAM: Chest, single view. HISTORY: Cough. COMPARISON: 05/03/2020 FINDINGS: A frontal view of the chest obtained. There is no infiltrate, pleural effusion or pneumothorax. There is a stable prominent cardiac silhouette. IMPRESSION: No acute pulmonary finding. Electronically signed by: Selam Soler MD (01/02/2021 11:12 AM) [id number] DICTATED and SIGNED BY: SELAM SOLER MD DATE: 01/02/21 [id number] 0 Course & Med Decision Making: Course & Med Decision Making Pertinent Labs and Imaging studies reviewed. (See chart for details) This is a 70-year-old female patient presented to the ED today complaining of cough and shortness of breath that began 2 days ago after being exposed to COVID-19. Temperature on arrival to the ED 98.9, heart rate 108, respiration 24, blood pressure 146/94, O2 sats 96 to 100% on room air. Has not take her BP medicines t his morning UA positive for UTI. CBC with a WBC of 11.8, hemoglobin 11.9 with hematocrit of 35.1 likely from chronic kidney disease. Potassium 3.1, patient was given oral potassium replacement. BNP 3385, patient was given furosemide. Chest x-ray negative for pneumonia or any acute findings. Rapid Covid test is positive. Patient was discharged to home. Instructed to quarantine herself. Given prescription for cephalexin for UTI. Precautions. Follow-up with PCP next week. Sami Disclaimer: Sami Disclaimer: This electronic medical record was generated, in whole or in part, using a voice recognition dictation system. Departure Departure Impression: Primary Impression: SARS-CoV-2 positive Additional Impressions: Shortness of breath Cough Urinary tract infection Qualified Codes: N39.0 - Urinary tract infection, site not specified Hypokalemia Disposition: HOME / SELF CARE / HOMELESS Condition: STABLE Referrals: ДМИТРИЙ MONTE MD (PCP) follow up in one week Patient Instructions: Cough, Adult, [id number], Shortness of Breath, Uhqu-xo-Cvuv, Urinary Tract Infection Additional Instructions: You are Positive for COVID-19 and urinary tract infection, will sent antibiotics to your pharmacy for urinary track infection. We highly recommend you quarantine yourself for 14 days, please maintain good hand hygiene. Come back to the ED at any point symptoms worsen Scripts Cephalexin (CEPHALEXIN) 500 Mg Tablet 1 TAB PO BID, #14 TAB Prov: CHARLINE SIMPSON APRN 01/02/21 CHARLINE SIMPSON APRN Jan 02, 2021 10:59
[2021-01-02 11:04] LABS: BACTERIA,URINE MANY /HPF (0-FEW); RBC,URINE RARE /HPF (0-2)
--- NOTE | 2021-01-02 11:15 | RAD ---
EXAM: Chest, single view. HISTORY: Cough. COMPARISON: 05/03/2020 FINDINGS: A frontal view of the chest obtained. There is no infiltrate, pleural effusion or pneumotho rax. There is a stable prominent cardiac silhouette. IMPRESSION: No acute pulmonary finding. Electronically signed by: Selam Mcleod MD (01/02/2021 11:12 AM) [id number]
[2021-01-02 11:30] LABS: BASO % 0 % (0-3); EOS % 0 % (0-3); HEMATOCRIT 35.1 % (36.0-47.0); HEMOGLOBIN 11.9 g/dL (12.0-15.5); LYMPH # 0.7 x10^3/uL (1.0-4.8); LYMPH % 6 % (24-48); MEAN CORPUSCULAR HEMOGLOBIN 28 pg (25-35); MEAN CORPUSCULAR HGB CONC 34 g/dL (31-37); MEAN CORPUSCULAR VOLUME 83 fL (79-100); MONO # 1.2 x10^3/uL (0.0-1.1); MONO % 10 % (0-9); NEUT # 9.9 x10^3/uL (1.8-7.7); NEUT % 84 % (31-73); PLATELET COUNT 180 x10^3/uL (140-400); RED BLOOD COUNT 4.22 x10^6/uL (3.50-5.40); WHITE BLOOD COUNT 11.8 x10^3/uL (4.0-11.0)
[2021-01-02 11:40] LABS: CALCIUM 9.6 mg/dL (8.5-10.1); CREATININE 0.8 mg/dL (0.6-1.0); GFR 70.7; POTASSIUM 3.1 mmol/L (3.5-5.1)
[2021-01-02 11:46] LABS: ALBUMIN 3.5 g/dL (3.4-5.0); ALBUMIN/GLOBULIN RATIO 0.8 (1.0-1.7); MAGNESIUM 1.5 mg/dL (1.8-2.4); TOTAL BILIRUBIN 0.7 mg/dL (0.2-1.0); TOTAL PROTEIN 7.7 g/dL (6.4-8.2)
[2021-01-02] MEDS ORDERED: POTASSIUM CHLORIDE 20 MEQ TABLET.ER. PO ONE (12:30)
[2021-01-02] MEDS ORDERED: CEPH500T PO (12:40)
[2021-01-02] MEDS ORDERED: FUROSEMIDE 40 MG/4 ML ORAL SOLUTION. PEG SCH (12:45)
[2021-01-02 12:53] VITALS: BP 138/64
[2021-01-02] MEDS ORDERED: FUROSEMIDE 40 MG TABLET. PO ONE (13:00)
--- NOTE | 2021-01-02 19:49 | EKG ---
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
== END 2021-01-02 13:05 | disposition home or self-care (01) ==
LOC: ER 10:20
DX: U07.1 COVID-19 (principal); N39.0 Urinary tract infection, site not specified; E87.6 Hypokalemia; K21.9 Gastro-esophageal reflux disease without esophagitis; I10 Essential (primary) hypertension; Z94.0 Kidney transplant status; Z90.49 Acquired absence of other specified parts of digestive tract; Z88.5 Allergy status to narcotic agent
CPT/HCPCS: 36415; 71045; 80053; 80307; 81001; 83605; 83735; 83880; 84145; 84484; 85025; 87040; 87077; 87086; 87186; 87426; 93005; 99285

== ENCOUNTER 2021-01-05 08:33 | Emergency (ER) | payer OTHER ==
[~2021-01-05] VITALS: Ht 160 cm; Wt 68.1 kg
[~2021-01-05 08:33] MED LIST changes: +CEPH500T PO
[2021-01-05] MEDS ORDERED: IV RINGERS,LACTATED 500ML 500 ML IV ONE (09:30)
--- NOTE | 2021-01-05 09:36 | NUR ---
Pt reporting soiling herself. This tech cleaned pt and bagged slip-on footwear as well as soiled clothing in separate bags. EMS cover/absorbant pads removed from under the patient. Pt now has extra-absorbant pad underneath them.
[2021-01-05 09:43] LABS: BASO % 0 % (0-3); EOS % 0 % (0-3); HEMATOCRIT 35.5 % (36.0-47.0); HEMOGLOBIN 12.4 g/dL (12.0-15.5); LYMPH # 0.7 x10^3/uL (1.0-4.8); LYMPH % 7 % (24-48); MEAN CORPUSCULAR HEMOGLOBIN 29 pg (25-35); MEAN CORPUSCULAR HGB CONC 35 g/dL (31-37); MEAN CORPUSCULAR VOLUME 82 fL (79-100); MONO # 0.9 x10^3/uL (0.0-1.1); MONO % 10 % (0-9); NEUT # 7.4 x10^3/uL (1.8-7.7); NEUT % 82 % (31-73); PLATELET COUNT 187 x10^3/uL (140-400); RED BLOOD COUNT 4.32 x10^6/uL (3.50-5.40); RED CELL DISTRIBUTION WIDTH 13.9 % (11.5-14.5)
[2021-01-05 09:55] LABS: CALCIUM 10.1 mg/dL (8.5-10.1); GFR 54.7; POTASSIUM 3.7 mmol/L (3.5-5.1)
[2021-01-05 10:01] LABS: ALBUMIN 3.2 g/dL (3.4-5.0); ALBUMIN/GLOBULIN RATIO 0.6 (1.0-1.7); TOTAL BILIRUBIN 0.6 mg/dL (0.2-1.0); TOTAL PROTEIN 8.2 g/dL (6.4-8.2)
--- NOTE | 2021-01-05 10:01 | RAD ---
XR CHEST 1V CLINICAL INDICATIONS: Shortness of breath COMPARISON: January 02, 2021. Findings: Calcified granuloma of the left lung bases seen. No acute lung infiltrate or pleural effusi on or pulmonary edema or lung mass or pneumothorax is seen. The heart size, pulmonary vasculature, m ediastinum and both daja are unremarkable. IMPRESSION: No acute radiographic abnormality is seen. Electronically signed by: Vasiliy Delaney MD (01/05/2021 9:58 AM) [id number]
--- NOTE | 2021-01-05 10:02 | PHYS DOC ---
Past Medical History Past Medical History: GERD, Hypertension, Liver Disease, Renal Disease, Other Additional Past Medical Histor: Kidney and liver transplant 7 years ago. Past Surgical History: Other Additional Past Surgical Histo: Kidney and liver transplant Smoking Status: Former Smoker Alcohol Use: None Drug Use: None General Adult EDM: Chief Complaint: WEAKNESS/GENERALIZED HPI: HPI: Patient is a 70 year old female who returns to the emergency department with continued complaints of cough, shortness of breath, weakness and diarrhea. Patient was seen in the department 3 days ago and was diagnosed COVID positive. She returns today due to her persistent symptoms, and worsening shortness of breath. Patient reports she had liver and kidney transplants 7 years ago, and therefore has not taken any medications because she is unsure what she is prohibited from taking. She denies fever/chills, headache, vomiting, bloody stool. Patient has no other complaints at this time. Review of Systems: Review of Systems: Constitutional: Denies fever or chills. Respiratory: See HPI Cardiovascular: Denies chest pain or edema. GI: See HPI : Denies dysuria or hematuria Musculoskeletal: Denies back pain or joint pain. Integument: Denies rash or other skin lesions Neurologic: See HPI Endocrine: Denies polyuria or polydipsia. Psychiatric: Denies depression or anxiety. Heart Score: C/O Chest Pain: No Current Medications: Current Medications Medications (Trade) Dose Ordered Sig/Tri Start Time Stop Time Status Last Admin Dose Admin Ringer's Solution 500 ml @ 500 mls/hr 1X ONCE 01/05/21 09:30 01/05/21 10:29 Allergies: Allergies: Allergies Coded Allergies Type Severity Reaction Last Updated Verified codeine Allergy Intermediate 01/05/21 Yes Physical Exam: PE: Constitutional: Patient appears fatigued, but otherwise well developed, well nourished. HENT: Normocephalic, atraumatic, bilateral external ears normal, oropharynx moist, no oral exudates, nose normal. Eyes: PERRLA, EOMI, conjunctiva normal, no discharge. Cardiovascular: Heart rate regular rhythm, no murmur. Lungs & Thorax: Bilateral breath sounds clear to auscultation. Abdomen: Bowel sounds normal, soft, no tenderness, no masses, no pulsatile masses. Skin: Warm, dry, no erythema, no rash. Extremities: No tenderness, no cyanosis, no clubbing, ROM intact, no edema. Neurologic: Alert and oriented x3, normal motor function, normal sensory function, no focal deficits noted. Current Patient Data: Labs: Laboratory Tests Test 01/05/21 08:49 White Blood Count 9.0 x10^3/uL (4.0-11.0) Red Blood Count 4.32 x10^6/uL (3.50-5.40) Hemoglobin 12.4 g/dL (12.0-15.5) Hematocrit 35.5 % (36.0-47.0) L Mean Corpuscular Volume 82 fL (79-100) Mean Corpuscular Hemoglobin 29 pg (25-35) Mean Corpuscular Hemoglobin Concent 35 g/dL (31-37) Red Cell Distribution Width 13.9 % (11.5-14.5) Platelet Count 187 x10^3/uL (140-400) Neutrophils (%) (Auto) 82 % (31-73) H Lymphocytes (%) (Auto) 7 % (24-48) L Monocytes (%) (Auto) 10 % (0-9) H Eosinophils (%) (Auto) 0 % (0-3) Basophils (%) (Auto) 0 % (0-3) Neutrophils # (Auto) 7.4 x10^3/uL (1.8-7.7) Lymphocytes # (Auto) 0.7 x10^3/uL (1.0-4.8) L Monocytes # (Auto) 0.9 x10^3/uL (0.0-1.1) Eosinophils # (Auto) 0.0 x10^3/uL (0.0-0.7) Basophils # (Auto) 0.0 x10^3/uL (0.0-0.2) Laboratory Tests 01/05/21 08:49 Vital Signs: Vital Signs Date Time Temp Pulse Resp B/P (MAP) Pulse Ox O2 Delivery O2 Flow Rate FiO2 01/05/21 08:33 98.9 80 20 130/77 (94) 97 Room Air 98.9 EKG: EKG: EKG Interpreted by Dr. Corrales: Sinus arrhythmia 76 bpm and with no ectopic beats. No concerning ST-T wave changes. Regular QR interval. (Occasional PVCs seen on monitor.) Radiology/Procedures: Radiology/Procedures: PROCEDURE: PORTABLE CHEST 1V XR CHEST 1V CLINICAL INDICATIONS: Shortness of breath COMPARISON: January 02, 2021. Findings: Calcified granuloma of the left lung bases seen. No acute lung infiltrate or pleural effusion or pulmonary edema or lung mass or pneumothorax is seen. The heart size, pulmonary vasculature, mediastinum and both daja are unremarkable. IMPRESSION: No acute radiographic abnormality is seen. Electronically signed by: Vasiliy Delaney MD (01/05/2021 9:58 AM) [id number] Course & Med Decision Making: Course & Med Decision Making Pertinent Labs and Imaging studies reviewed. (See chart for details) As patient is known COVID positive, and has worsening shortness of breath, chest x-ray will be ordered to evaluate for COVID pneumonia. Chest x-ray does not show evidence of Covid pneumonia at this time. Patient is also satting in the high 90s on room air. Due to patient's age, immunocompromise status, and symptom duration less than 10 days, she is eligible for a monoclonal antibody infusion. She is very high risk for severe Covid pneumonia infection, so she will be administered therapy in the department and then discharged home versus outpatient referral for monoclonal antibody infusion therapy. REGEN-COV dose pack administered in ED and patient was observed per protocol. Patient tolerated treatment and will be discharged home with COVID-19 diagnosis information as well as the fact sheet for patients obtained from [facility]. She has strict return precautions for new or worsening symptoms. Patient understands and is agreeable to discharge plan. Dragon Disclaimer: Sami Disclaimer: This electronic medical record was generated, in whole or in part, using a voice recognition dictation system. Departure Departure Impression: Primary Impression: SARS-CoV-2 positive Additional Impressions: Cough Hyponatremia Diarrhea due to COVID-19 Disposition: 01 HOME / SELF CARE / HOMELESS Condition: STABLE Referrals: ДМИТРИЙ MONTE MD (PCP) Patient Instructions: Diet for Diarrhea, Adult, Shortness of Breath, Easy -to-Read Additional Instructions: As discussed, you are eligible for a monoclonal antibody infusion outpatient therapy for COVID-19 infection. Due to your immunocompromised status after your liver and kidney transplants, you were provided with this treatment here in the department. You have been tested for or diagnosed with COVID-19. It is an infection caused by a new type of coronavirus. COVID-19 will cause cold-like or mild flu symptoms in most. It can cause more severe symptoms like problems breathing in some. There is no treatment for COVID-19. The body will clear the infection over time. Self-care will help to ease discomfort. Steps to Take: Self-Care Rest as needed. Healthy habits may help you feel better. Steps include: Choose healthy foods including fruits and vegetables. Drink water throughout the day. Get plenty of sleep each night. If you smoke, try to quit. It may ease breathing. Avoid alcohol. Keep Others Healthy The virus can spread to others. Droplets are released every time you sneeze or cough. The droplets can get into the mouth, nose, or eyes of people near you and lead to infection. To lower the chances of spreading COVID-19 to others: Stay at home until your doctor has said it is safe to leave. If you tested positive this will mean staying isolated until both of the following are true: At least 7 days have passed since the start of illness. You are free of fever for at least 72 hours without the use of medicine. During this time: - Avoid public areas, events, or transportation. Do not return to work or school until your doctor has said it is safe to do so. - Call ahead if you need to go to a medical center. Let them know you may have COVID-19. It will help them guide you where to go. They may also ask you to wear a facemask when you come to the office. - If you call for emergency medical services, let them know you may have COVID- 19. While at home: - Try to avoid close contact with others. Stay about 6 feet away. - If possible, spend most of your time in a separate room from others. - Use a face mask if you will be in close contact with others such as sharing a room or vehicle. - Have someone wipe down common surfaces in the home. Use household printing screen assembler every day on areas like doorknobs, counters, or sinks. - Cough or sneeze into a tissue. Throw the tissue away right after use. If a tissue is not available, cough or sneeze into your elbow. - Wash your hands often. Wash them after sneezing or coughing. Use soap and water and wash for at least 20 seconds. Alcohol based hand quill cleaner can be used if soap and water is not available. - Do not prepare food for others. Avoid sharing personal items like forks, spoons, or toothbrushes. - Avoid close contact with pets while you are sick. There is no evidence of the virus passing to pets. This is a safety step until more is known about this virus. Isolation can be frustrating. Social interaction can help. Keep in touch with friends and family through phone and tech options. You can still interact with others in your home, just keep a safe distance of about 6 feet. Follow-up: Your doctors office will check in with you to see if there are any changes in your health. You may be asked to keep track of symptoms to share with them. They will also let you know when you are clear to be in public again. Problems to Look Out For: Contact your doctor if your recovery is not going as you expect. Get emergency care if you have problems such as: - Trouble breathing - Nonstop chest pain or pressure - Changes in awareness, confusion, or problems waking - Lips or face have bluish color - Worsening of symptoms If you think you have an emergency, call for emergency medical services right away. As taken from [facility] Albuterol Sulfate (PROAIR HFA INHALER) 8.5 Gm Hfa.aer.ad 2 PUFF IH PRN Q4-6HRS PRN for SHORTNESS OF BREATH, #1 INHALER 1 Refill Prov: CHAITANYA TATE 01/05/21 CHAITANYA TATE Jan 05, 2021 10:02
[2021-01-05] MEDS ORDERED: CASIRIVIMAB/IMDEVIMAB 600/600mg in IV NS TV=50 ML IV ONE (12:30)
[2021-01-05] MEDS ORDERED: ALBU2.5V8 IH (13:40)
[2021-01-05 13:50] VITALS: BP 157/70
== END 2021-01-05 14:20 | disposition home or self-care (01) ==
LOC: ER 08:33
DX: U07.1 COVID-19 (principal); A08.39 Other viral enteritis; E87.1 Hypo-osmolality and hyponatremia; R05.9 Cough, unspecified; K21.9 Gastro-esophageal reflux disease without esophagitis; I10 Essential (primary) hypertension; Z87.891 Personal history of nicotine dependence; Z88.5 Allergy status to narcotic agent
CPT/HCPCS: 36415; 71045; 80053; 85025; 96361; 96365; 99285; J7120; M0243; Q0244

== ENCOUNTER 2021-01-13 12:21 | Emergency (ER) | payer OTHER ==
[~2021-01-13] VITALS: Ht 160 cm; Wt 68.1 kg
[~2021-01-13 12:21] MED LIST changes: +ALBU2.5V8 IH
[2021-01-13] MEDS ORDERED: ONDANSETRON PF 4 MG/2 ML VIAL. IVP ONE (13:15)
[2021-01-13] MEDS ORDERED: IV NORMAL SALINE 1000ML BAG 1,000 ML IV ONE (13:15)
[2021-01-13 13:23] LABS: BASO # 0.1 x10^3/uL (0.0-0.2); BASO % 1 % (0-3); EOS % 0 % (0-3); HEMATOCRIT 36.6 % (36.0-47.0); HEMOGLOBIN 12.5 g/dL (12.0-15.5); LYMPH # 0.5 x10^3/uL (1.0-4.8); LYMPH % 3 % (24-48); MEAN CORPUSCULAR HEMOGLOBIN 28 pg (25-35); MEAN CORPUSCULAR HGB CONC 34 g/dL (31-37); MEAN CORPUSCULAR VOLUME 82 fL (79-100); MONO # 1.5 x10^3/uL (0.0-1.1); MONO % 7 % (0-9); NEUT # 19.2 x10^3/uL (1.8-7.7); NEUT % 90 % (31-73); PLATELET COUNT 415 x10^3/uL (140-400); RED BLOOD COUNT 4.47 x10^6/uL (3.50-5.40); WHITE BLOOD COUNT 21.4 x10^3/uL (4.0-11.0)
[2021-01-13 13:36] LABS: CREATININE 1.1 mg/dL (0.6-1.0); POTASSIUM 3.3 mmol/L (3.5-5.1)
--- NOTE | 2021-01-13 13:36 | RAD ---
Single view of the chest. 01/13/2021 1:10 PM Indication: Reason: Covid positive shortness of breath / Comparison: Chest radiograph January 05, 2021 Findings: Interval mild increase in interstitial and patchy alveolar infiltrates in the interim. Hear t size is top normal. No pneumothorax or pleural effusion. No acute osseous changes are identified. Impression: Mild increase in interstitial and minimal alveolar infiltrates in the interim. Findings c onsistent with provided history of Covid 19 pneumonia. Electronically signed by: Stan Pressley MD (01/13/2021 1:34 PM) [id number]
[2021-01-13 13:43] LABS: ALBUMIN 2.8 g/dL (3.4-5.0); ALBUMIN/GLOBULIN RATIO 0.5 (1.0-1.7); TOTAL BILIRUBIN 0.5 mg/dL (0.2-1.0); TOTAL PROTEIN 8.9 g/dL (6.4-8.2)
[2021-01-13] MEDS ORDERED: CONTRAST GIVEN. MC PRN (13:45)
[2021-01-13] MEDS ORDERED: IOHEXOL 350 MG/ML 100 ML VIAL. IV ONE (13:45)
--- NOTE | 2021-01-13 14:13 | RAD ---
CTA Chest with contrast: Clinical History: Reason: Covid positive, shortness of breath / Spl. Instructions: omni 350 80ml / Hi story: Shortness of breath. Axial helical images of the chest were obtained after the administration of 80 cc of IV Isovue-370 an d timed appropriately for a pulmonary arterial study. Conventional axial reconstruction was performe d in addition to coronal, sagittal and bilateral oblique MIP (maximum intensity projection). This st udy was ordered to detect possible pulmonary embolism. There are no filling defects to suggest pulmonary embolism. The more peripheral subsegmental pulmonary arteries are not well opacified limiting our sensitivity f or small peripheral pulmonary emboli. There is patchy masslike peripheral opacities bilaterally. A few in the lung bases are not seen and t he femora [address] the abdomen. There is no mediastinal or hilar lymphadenopathy. The thoracic aorta appears normal. Impression: 1. No evidence of pulmonary embolism. 2. Bilateral peripheral opacities is likely atypical pneumonia. Recommend follow-up chest x-ray to c omplete resolution. End impression PQRS Compliance Statement: One or more of the following individualized dose reduction techniques were utilized for this examinat ion: 1. Automated exposure control 2. Adjustment of the mA and/or kV according to patient size 3. Use of iterative reconstruction technique Electronically signed by: Pedro Bernstein III, MD (01/13/2021 2:10 PM) [facility]
[2021-01-13 14:23] LABS: BILIRUBIN,URINE SMALL (NEG); CLARITY,URINE CLEAR; COLOR,URINE AMBER; NITRITE,URINE POSITIVE (NEG); PROTEIN,URINE 100 mg/dL (NEG-TRACE)
[2021-01-13 15:03] LABS: BACTERIA,URINE MODERATE /HPF (0-FEW)
[2021-01-13 15:51] LABS: % BANDS 3 % (0-9); % LYMPHS 4 % (24-48); % MONOS 9 % (0-10); % MYELOS 1 % (0-0); % SEGS 83 % (35-66); PLT ESTIMATE INCREASED (ADEQUATE)
[2021-01-13] MEDS ORDERED: AZIT250T PO (16:21)
[2021-01-13] MEDS ORDERED: ONDA4TAB12 PO (16:21)
--- NOTE | 2021-01-13 16:21 | PHYS DOC ---
Past Medical History Past Medical History: GERD, Hypertension, Liver Disease, Renal Disease, Other Additional Past Medical Histor: Kidne/liver transplant 7 years ago,COVID-12 JANUARY 2021. Past Surgical History: Other Additional Past Surgical Histo: Kidney/liver transplant Smoking Status: Former Smoker Alcohol Use: None Drug Use: None General Adult EDM: Chief Complaint: FATIGUE HPI: HPI: Patient is a 70-year-old female presents to the emergency complaining of ongoing feelings of weakness, generalized body aches, shortness of breath, intermittent diarrhea after catching the Covid virus a week ago. Patient reports she called her primary physician Dr. Hoffmann who told her there was nothing more he could do and she should wait out this viral illness. Patient reports she cannot take it anymore. Patient denies chest pain, diaphoretic episodes. Patient denies fever or chills. Patient denies other physical complaints or physical concerns. Review of Systems: Review of Systems: 14 body systems of review of systems have been reviewed. See HPI for pertinent positives and negative responses, otherwise all other systems are negative, nonpertinent or noncontributory. Constitutional: Negative except as outlined in HPI above. Skin: Negative except as outlined in HPI above. Eyes: Negative except as outlined in HPI above. HENT: Negative except as outlined in HPI above. Respiratory: Negative except as outlined in HPI above. Cardiovascular: Negative except as outlined in HPI above. GI: Negative except as outlined in HPI above. : Negative except as outlined in HPI above. Musculoskeletal: Negative except as outlined in HPI above. Integument: Negative except as outlined in HPI above. Neurologic: Negative except as outlined in HPI above. Endocrine: Negative except as outlined in HPI above. Lymphatic: Negative except as outlined in HPI above. Psychiatric: Negative except as outlined in HPI above. Heart Score: C/O Chest Pain: No Risk Factors: Risk Factors: DM, Current or recent (<one month) smoker, HTN, HLP, family history of CAD, obesity. Risk Scores: Score 0 - 3: 2.5% MACE over next 6 weeks - Discharge Home Score 4 - 6: 20.3% MACE over next 6 weeks - Admit for Clinical Observation Score 7 - 10: 72.7% MACE over next 6 weeks - Early Invasive Strategies Current Medications: Current Medications Medications (Trade) Dose Ordered Sig/Tri Start Time Stop Time Status Last Admin Dose Admin Info (CONTRAST GIVEN -- Rx MONITORING) 1 each PRN DAILY PRN 01/13/21 13:45 01/15/21 13:44 Iohexol (Omnipaque 350 Mg/ml) 80 ml 1X ONCE 01/13/21 13:45 01/13/21 13:46 DC 01/13/21 14:01 80 ML Ondansetron HCl (Zofran) 4 mg 1X ONCE 01/13/21 13:15 01/13/21 13:16 DC 01/13/21 13:59 4 MG Sodium Chloride 1,000 ml @ 1,000 mls/hr 1X ONCE 01/13/21 13:15 01/13/21 14:14 DC 01/13/21 14:00 1,000 MLS/HR Allergies: Allergies: Allergies Coded Allergies Type Severity Reaction Last Updated Verified codeine Allergy Intermediate 01/05/21 Yes Physical Exam: PE: Constitutional: Well developed, well nourished, no acute distress, non-toxic appearance. 70-year-old female in no apparent distress. HENT: Normocephalic, atraumatic. Eyes: Conjunctiva normal, no discharge. Neck: Normal range of motion, no stridor. Cardiovascular: No cyanosis appreciated, distal cap refill less than 2 seconds. Heart sounds S1-S2, RRR Lungs & Thorax: Patient is in no respiratory distress, no audible adventitious lung sounds appreciated. Lung sounds clear to auscultation all lung simpson. No adventitious lung sounds appreciated per auscultation. Normal work of breathing. Abdomen: Nontender, no abnormalities noted. Skin: Warm, dry, no erythema, no rash. Back: No tenderness, no deformities. Extremities: No tenderness, no cyanosis, no clubbing, ROM intact, no edema. Neurologic: Alert and oriented X 3, normal motor function, normal sensory function, no focal deficits noted. Psychologic: Affect normal, judgement normal, mood normal. Current Patient Data: Labs: Laboratory Tests Test 01/13/21 12:42 01/13/21 14:10 White Blood Count 21.4 x10^3/uL (4.0-11.0) H Red Blood Count 4.47 x10^6/uL (3.50-5.40) Hemoglobin 12.5 g/dL (12.0-15.5) Hematocrit 36.6 % (36.0-47.0) Mean Corpuscular Volume 82 fL (79-100) Mean Corpuscular Hemoglobin 28 pg (25-35) Mean Corpuscular Hemoglobin Concent 34 g/dL (31-37) Red Cell Distribution Width 14.0 % (11.5-14.5) Platelet Count 415 x10^3/uL (140-400) H Neutrophils (%) (Auto) 90 % (31-73) H Lymphocytes (%) (Auto) 3 % (24-48) L Monocytes (%) (Auto) 7 % (0-9) Eosinophils (%) (Auto) 0 % (0-3) Basophils (%) (Auto) 1 % (0-3) Neutrophils # (Auto) 19.2 x10^3/uL (1.8-7.7) H Lymphocytes # (Auto) 0.5 x10^3/uL (1.0-4.8) L Monocytes # (Auto) 1.5 x10^3/uL (0.0-1.1) H Eosinophils # (Auto) 0.0 x10^3/uL (0.0-0.7) Basophils # (Auto) 0.1 x10^3/uL (0.0-0.2) Segmented Neutrophils % 83 % (35-66) H Band Neutrophils % 3 % (0-9) Lymphocytes % 4 % (24-48) L Monocytes % 9 % (0-10) Myelocytes % 1 % (0-0) H Platelet Estimate Increased (ADEQUATE) Sodium Level 140 mmol/L (136-145) Potassium Level 3.3 mmol/L (3.5-5.1) L Chloride Level 100 mmol/L (98-107) Carbon Dioxide Level 25 mmol/L (21-32) Anion Gap 15 (6-14) H Blood Urea Nitrogen 27 mg/dL (7-20) H Creatinine 1.1 mg/dL (0.6-1.0) H Estimated GFR (Cockcroft-Gault) 49.0 BUN/Creatinine Ratio 25 (6-20) H Glucose Level 207 mg/dL (70-99) H Calcium Level 11.0 mg/dL (8.5-10.1) H Total Bilirubin 0.5 mg/dL (0.2-1.0) Aspartate Amino Transferase (AST) 9 U/L (15-37) L Alanine Aminotransferase (ALT) 18 U/L (14-59) Alkaline Phosphatase 58 U/L (46-116) Creatine Kinase 97 U/L (26-192) Creatine Kinase MB (Mass) 0.6 ng/mL (0.0-3.6) Creatine Kinase MB Relative Index 0.6 % (0-4) Troponin I Quantitative < 0.017 ng/mL (0.000-0.055) PW-[id number]-Type Natriuretic Peptide 2582 pg/mL (0-124) H Total Protein 8.9 g/dL (6.4-8.2) H Albumin 2.8 g/dL (3.4-5.0) L Albumin/Globulin Ratio 0.5 (1.0-1.7) L Urine Collection Type Unknown Urine Color Leann Urine Clarity Clear Urine pH 6.0 (<5.0-8.0) Urine Specific [place] >=1.030 (1.000-1.030) Urine Protein 100 mg/dL (NEG-TRACE) Urine Glucose (UA) Negative mg/dL (NEG) Urine Ketones (Stick) Trace mg/dL (NEG) Urine Blood Moderate (NEG) Urine Nitrite Positive (NEG) Urine Bilirubin Small (NEG) Urine Urobilinogen Dipstick 1.0 mg/dL (0.2 mg/dL) Urine Leukocyte Esterase Small (NEG) Urine RBC 3-5 /HPF (0-2) Urine WBC 5-10 /HPF (0-4) Urine Bacteria Moderate /HPF (0-FEW) Laboratory Tests 01/13/21 12:42 Laboratory Tests 01/13/21 12:42 Vital Signs: Vital Signs Date Time Temp Pulse Resp B/P (MAP) Pulse Ox O2 Delivery O2 Flow Rate FiO2 01/13/21 15:50 78 25 157/71 (99) 97 Room Air 01/13/21 12:21 97.8 97.8 EKG: EKG: EKG performed at 1228 by ED nursing staff shows a normal sinus rhythm without other ectopy, heart rate 96 bpm, NH interval 0.118, QTc interval 0.415, no acute STEMI, no ACS, no acute ischemia appreciated, EKG interpreted by ED attending physician Dr. Arana. Radiology/Procedures: Radiology/Procedures: PROCEDURE: CT ANGIOGRAPHY CHEST CTA Chest with contrast: Clinical History: Reason: Covid positive, shortness of breath / Spl. Instructions: omni 350 80ml / History: Shortness of breath. Axial helical images of the chest were obtained after the administration of 80 cc of IV Isovue-370 and timed appropriately for a pulmonary arterial study. Conventional axial reconstruction was performed in addition to coronal, sagittal and bilateral oblique MIP (maximum intensity projection). This study was order ed to detect possible pulmonary embolism. There are no filling defects to suggest pulmonary embolism. The more peripheral subsegmental pulmonary arteries are not well opacified limiting our sensitivity for small peripheral pulmonary emboli. There is patchy masslike peripheral opacities bilaterally. A few in the lung bases are not seen and the femora 2020 CT the abdomen. There is no mediastinal or hilar lymphadenopathy. The thoracic aorta appears normal. Impression: 1. No evidence of pulmonary embolism. 2. Bilateral peripheral opacities is likely atypical pneumonia. Recommend follow-up chest x-ray to complete resolution. PROCEDURE: CHEST AP ONLY Single view of the chest. 01/13/2021 1:10 PM Indication: Reason: Covid positive shortness of breath / Comparison: Chest radiograph January 05, 2021 Findings: Interval mild increase in interstitial and patchy alveolar infiltrates in the interim. Heart size is top normal. No pneumothorax or pleural effusion. No acute osseous changes are identified. Impression: Mild increase in interstitial and minimal alveolar infiltrates in the interim. Findings consistent with provided history of Covid 19 pneumonia. Electronically signed by: Stan Pressley MD (01/13/2021 1:34 PM) [id number] Course & Med Decision Making: Course & Med Decision Making Pertinent Labs and Imaging studies reviewed. (See chart for details) 70-year-old female, vital signs reviewed, presents emergency department concerning ongoing COVID-19 virus symptoms. Will order CTA chest, cardiorespiratory work-up. Patient is EKG within normal limits, cardiac enzymes negative, patient does have elevated BNP however has decreased significantly since last ER visit 10 days ago. The patient is not hypoxic, is in no respiratory distress, CT angio chest is concerning for Covid pneumonia/atypical pneumonia. Discussed with patient findings, will prescribe antibiotic regimen for outpatient treatment of atypical pneumonia, will also prescribe ODT Zofran for intermittent nausea. Patient is amenable to ED discharge planning. Thank you for visiting our Emergency Department. It was a pleasure taking care of you today in the emergency department and we appreciate you trusting us with your care. If any additional problems come up don't hesitate to return to visit us. Please follow up with your primary care provider so they can plan additional care if needed and know about the problem that you had. If symptoms worsen come back to the Emergency Department. Any concerning symptoms that start such as chest pain, shortness of air, weakness or numbness on one side of the body, running high fevers or any other concerning symptoms return to the ER. Sami Disclaimer: Sami Disclaimer: This electronic medical record was generated, in whole or in part, using a voice recognition dictation system. Departure Departure Impression: Primary Impression: SARS-CoV-2 positive Additional Impressions: Atypical pneumonia COVID-19 virus infection Disposition: HOME / SELF CARE / HOMELESS Condition: GOOD Referrals: ДМИТРИЙ MONTE MD (PCP) Patient Instructions: Pneumonia, Adult Additional Instructions: You were seen today in the emergency department for ongoing symptoms of your COVID-19 virus infection. An extensive cardiorespiratory work-up was completed today, your CT angio chest did not show any blood clots in your lungs however does show a atypical pneumonia which is consistent with a COVID-19 virus. Therefore I am starting you on an antibiotic, please take as directed until complete, I am also prescribing you Zofran for nausea, you may take as needed for nausea and vomiting. Please follow-up with your primary care physician soon, call tomorrow to let Dr. Hoffmann know you are on antibiotics for pneumonia. Return to the emergency department for worsening shortness of breath, increased fever or chills, increased chest pain, or other concerns continue to socially distance and quarantine to prevent the spread of this virus. Discussed with the patient all findings and diagnostic testing as well as the need to follow-up with their primary care provider for further evaluation and treatment or return to the ED if any new or worsening symptoms. Strict return precautions were also discussed at length, the patient voiced understanding and agreement with the discharge planning. The patient was nontoxic in appearance, in no apparent distress, and hemodynamically stable at the time of disposition. EMERGENCY DEPARTMENT GENERAL DISCHARGE INSTRUCTIONS Thank you for coming to [facility] Emergency Department (ED) today and trusting us with you care. We trust that you had a positive experience in our Emergency Department. If you wish to speak to the department management, you may call the Director at [phone]. YOUR FOLLOW UP INSTRUCTIONS ARE FOLLOWS: 1. Do you have a private Doctor? If you do not have a private doctor, please ask for a resource list of physicians or clinics that may be able to assist you with follow up care. 2. The Emergency Physicain has interpreted your x-rays. The X-Ray specialist will also review them. If there is a change in the findings, you will be notified in 48 hours when at all possible. 3. A lab test or culture has been done, your results will be reviewed and you will be notified if you need a change in treatment. ADDITIONAL INSTRUCTIONS AND INFORMATION: 1. Your care today has been supervised by a physician who is specially trained in emergency care. Many problems require more than one evaluation for a complete diagnosis and treatment. We recommend that you schedule your follow up appointment as recommended to ensure complete treatment of you illness or injury. If you are unable to obtain follow up care and continue to have a problem, or if your condition worsens, we recommend that you return to the ED. 2. We are not able to safely determine your condition over the phone nor are we able to give sound medical advice over the phone. For these safety reasons, if you call for medical advice we will ask you to come to the ED for further evaluation. 3. If you have any questions regarding these discharge instructions please call the ED at [phone]. SAFETY INFORMATION: In the interest of safety, wellness, and injury prevention; we encourage you to wear your sealbelt, if you smoke; quite smoking, and we encourage family to use a protective helmet for bicycling and other sporting events that present an increased risk for head injury. IF YOUR SYMPTOMS WORSEN OR NEW SYMPTOMS DEVELOP, OR YOU HAVE CONCERNS ABOUT YOUR CONDITION; OR IF YOUR CONDITION WORSENS WHILE YOU ARE WAITING FOR YOUR FOLLOW UP APPOINTMENT; EITHER CONTACT YOUR PRIMARY CARE DOCTOR, THE PHYSICIAN WHOSE NAME AND NUMBER YOU WERE GIVEN, OR RETURN TO THE ED IMMEDIATELY. You have been tested for or diagnosed with COVID-19. It is an infection caused by a new type of coronavirus. COVID-19 will cause cold-like or mild flu symptoms in most. It can cause more severe symptoms like problems breathing in some. There is no treatment for COVID-19. The body will clear the infection over time. Self-care will help to ease discomfort. Steps to Take: Self-Care Rest as needed. Healthy habits may help you feel better. Steps include: Choose healthy foods including fruits and vegetables. Drink water throughout the day. Get plenty of sleep each night. If you smoke, try to quit. It may ease breathing. Avoid alcohol. Keep Others Healthy The virus can spread to others. Droplets are released every time you sneeze or cough. The droplets can get into the mouth, nose, or eyes of people near you and lead to infection. To lower the chances of spreading COVID-19 to others: Stay at home until your doctor has said it is safe to leave. If you tested positive this will mean staying isolated until both of the following are true: At least 7 days have passed since the start of illness. You are free of fever for at least 72 hours without the use of medicine. During this time: - Avoid public areas, events, or transportation. Do not return to work or school until your doctor has said it is safe to do so. - Call ahead if you need to go to a medical center. Let them know you may have COVID-19. It will help them guide you where to go. They may also ask you to wear a facemask when you come to the office. - If you call for emergency medical services, let them know you may have COVID- 19. While at home: - Try to avoid close contact with others. Stay about 6 feet away. - If possible, spend most of your time in a separate room from others. - Use a face mask if you will be in close contact with others such as sharing a room or vehicle. - Have someone wipe down common surfaces in the home. Use household chef head every day on areas like doorknobs, counters, or sinks. - Cough or sneeze into a tissue. Throw the tissue away right after use. If a tissue is not available, cough or sneeze into your elbow. - Wash your hands often. Wash them after sneezing or coughing. Use soap and water and wash for at least 20 seconds. Alcohol based hand bus cleaner can be used if soap and water is not available. - Do not prepare food for others. Avoid sharing personal items like forks, spoons, or toothbrushes. - Avoid close contact with pets while you are sick. There is no evidence of the virus passing to pets. This is a safety step until more is known about this virus. Isolation can be frustrating. Social interaction can help. Keep in touch with friends and family through phone and tech options. You can still interact with others in your home, just keep a safe distance of about 6 feet. Follow-up: Your doctors office will check in with you to see if there are any changes in your health. You may be asked to keep track of symptoms to share with them. They will also let you know when you are clear to be in public again. Problems to Look Out For: Contact your doctor if your recovery is not going as you expect. Get emergency care if you have problems such as: - Trouble breathing - Nonstop chest pain or pressure - Changes in awareness, confusion, or problems waking - Lips or face have bluish color - Worsening of symptoms If you think you have an emergency, call for emergency medical services right away. As taken from [facility] Azithromycin (ZITHROMAX) 250 Mg Tablet 1 PKG PO UD for Atypical pneumonia, #6 TAB 0 Refills Prov: NURIA SANTIAGO APRN 01/13/21 Ondansetron (ONDANSETRON ODT) 4 Mg Tab.rapdis 1 TAB PO PRN Q6-8HRS for Nausea, #16 TAB 0 Refills Prov: NURIA SANTIAGO APRN 01/13/21 NURIA SANTIAGO APRN Jan 13, 2021 16:21
[2021-01-13] MEDS ORDERED: AZITHROMYCIN 250 MG TABLET. PO ONE (16:30)
[2021-01-13 16:48] VITALS: BP 168/79
== END 2021-01-13 16:59 | disposition home or self-care (01) ==
LOC: ER 12:21
DX: U07.1 COVID-19 (principal); J18.9 Pneumonia, unspecified organism; K21.9 Gastro-esophageal reflux disease without esophagitis; I10 Essential (primary) hypertension; Z87.891 Personal history of nicotine dependence; Z88.5 Allergy status to narcotic agent
CPT/HCPCS: 36415; 71045; 71275; 80053; 81001; 82553; 83880; 84484; 85007; 85025; 87040; 87086; 96361; 96374; 99285; J2405; J7030; Q9967